=== PATIENT | female | born 1940 | race Caucasian/White ===

== ENCOUNTER 2017-08-08 13:10 | Outpatient (RCR) | payer MEDICARE ==
[~2017-08-08 13:10] MED LIST: ACE3 PO; ADV250/50 INH; ALB6.7R INH; ARFO15VI IH; ASPI-715 PO; BUDE0.256 IH; CALC600T72 PO; CHON250C2 PO; GLUC750T10 PO; LEV100 PO; MON10 PO; MULT-1335 PO; SIMV-42 PO; SULF-198 PO; TAMO20TA24 PO; TIO18R INH; VITAMIN E; [UNRECOGNIZED DRUG - CODE] PO; [UNRECOGNIZED DRUG - CODE] PO; [UNRECOGNIZED DRUG - CODE] PO
[2017-08-08 13:33] LABS: PLATELET COUNT, AUTOMATED 194 K/uL (150-450)
[2017-08-08 14:28] VITALS: BP 123/73
--- NOTE | 2017-08-09 16:49 | ONCOLOGY FOLLOW UP NOTE ---
EVENT DATE: August 08, 2017 DIAGNOSES 1. Stage I (pt1B pN0 M0) invasive ductal carcinoma, right breast. Three sentinel lymph nodes were negative for metastasis. 2. Left breast nodule. Biopsy was negative for malignancy. Was positive for fibroadenoma and benign micro calcification. 3. Chronic obstructive pulmonary disease. 4. Second degree anisocytosis. 5. Osteoporosis. CHIEF COMPLAINT The patient is here today for followup of her breast cancer. ONCOLOGY HISTORY The patient is a 77-year-old woman who was initially diagnosed with Stage I ( pt1B pN0 M0) right breast cancer, status post right breast biopsy done on January 04, 2009 followed by right simple mastectomy and right sentinel lymph node biopsy done on January 25, 2009. The final pathology report was positive for 0.9 cm invasive ductal carcinoma, grade 2/3, with negative margins. Three sentinel lymph nodes were negative for metastasis. Hormone receptor positive disease. The patient was maintained on tamoxifen since January 2009, and she was not prescribed aromatase inhibitors because of the cost. PRESENTATION Abnormal screening mammogram done on June 08, 2010, which showed a small nodular density in the left breast. DIAGNOSTIC EVALUATION Ultrasonogram of the left breast done on June 08, 2010 did reveal the presence of 7 mm irregular hypoechoic lesion at the 11 o'clock position. PROCEDURE Needle-guided biopsy of the left breast nodule done on June 16, 2010. Pathology positive for sclerotic fibroadenoma with benign micro calcification. TREATMENT The patient started treatment therapy with Arimidex on June 20, 2010, but the patient could not tolerate the treatment because of the joint pains, so the treatment was switched to tamoxifen. The patient continued tamoxifen for a total of five years and tamoxifen was stopped by the patient in May 2015 after five years of adjuvant hormonal therapy, and the patient refused to continue tamoxifen for ten years. HISTORY OF PRESENT ILLNESS The patient is here today for followup of her right breast cancer. She is complaining of shortness of breath all the time, she is on home oxygen, but other than that she does not have any other complaints. PAST MEDICAL HISTORY 1. Right breast cancer diagnosed in December 2008. 2. Hypercholesterolemia. 3. Chronic obstructive pulmonary disease. 4. Hypothyroidism. PAST SURGICAL HISTORY 1. Right hip replacement in 2005. 2. Right simple mastectomy and sentinel lymph node biopsy January 2009. 3. Broken arms, two times before. SOCIAL HISTORY The patient is . She has three sons. 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 She has about three drinks per month. She quit smoking in 2004. Before that, she smoked two packs a day for twenty-five years. Denies any abuse of drugs. FAMILY HISTORY Paternal aunt had breast cancer at the age of 68. Maternal aunt had pancreatic cancer in her 70's. CURRENT MEDICATIONS 1. Budesonide 0.5 mg/2 mL 2. Brovana 15 mcg/2 mL 3. Spiriva 18 mcg 4. Tamoxifen 20 mg 5. Levothyroxine 125 mcg 6. Singulair 10 mg 7. Simvastatin 40 mg 8. ProAir HFA 90 mcg 9. ProAir nebulizer 10. Aspirin 81 mg 11. Vitamin B12 Women's multivitamin, calcium, vitamin D, glucosamine, chondroitin, sulfate and MSN. ALLERGIES No known drug allergies. REVIEW OF SYSTEMS CONSTITUTIONAL: No appetite or weight change. No fever, chills or sweating. No recent infection. Ears: No tinnitus or hearing problem. Nose: The patient has some nasal discharge. Throat: No sore throat or mouth ulcers. Eyes: No diplopia or visual changes. RESPIRATORY: The patient has shortness of breath. CARDIOVASCULAR: No chest pain, orthopnea, or paroxysmal nocturnal dyspnea (PND) . No edema. No palpitations. GASTROINTESTINAL: No nausea or vomiting. No diarrhea or constipation. No change in bowel movements. No heartburn or swallowing difficulties. No abdominal pain. No jaundice. No hematemesis, melena or rectal bleeding. GENITOURINARY: She has recurrent urinary tract infections, so patient maintained currently on Bactrim daily. MUSCULOSKELETAL: No pain in the muscles, joints or bones. NEUROLOGICAL: No tingling or numbness in the hands or feet. No headaches or convulsions. HEMATOLOGIC/LYMPHATIC: No bleeding or easy bruising. No weakness or fatigue. No enlarged lymph nodes. SKIN: She has some lymphedema below the right armpit after carrying a heavy object lately. PSYCHIATRIC: No anxiety or depression. PHYSICAL EXAMINATION GENERAL: Looks stable. Well-developed, well-nourished, and in no acute distress. VITAL SIGNS: Blood pressure 123/73, pulse 89 per minute, respirations 16 per minute, temperature 96.9, pulse ox. 92% on 5L oxygen. HEENT: Head: Atraumatic. No sinus tenderness to palpation. Eyes: No icterus or conjunctivitis. Mouth and throat: No oral thrush or mucositis. NECK: Supple. No cervical or supraclavicular lymphadenopathy. LUNGS: Clear to auscultation and percussion bilaterally. HEART: Regular rate and rhythm. No gallops, murmurs, clicks or rubs. ABDOMEN: Soft and lax. No tenderness. No hepatosplenomegaly. No masses. EXTREMITIES: No cyanosis, clubbing or edema. LYMPHATICS: No peripheral lymphadenopathy. NEUROLOGICAL: Conscious, alert and oriented times three. No focal motor or sensory deficits. PSYCHIATRIC: Mood and affect appear normal. SKIN: No skin rash, bruise or purpuric eruption. DIAGNOSTIC DATA Her screening mammogram done July 2017 showed scattered areas of fibroglandular density with requirement of more additional views. ASSESSMENT 1. Stage I (pt1b pN0 cM0) invasive ductal carcinoma of the right breast. [place] lymph nodes were negative for metastasis. The patient used tamoxifen between January 2009, switched to Aromasin June 20, 2010 and the patient returned back to tamoxifen because of joint pains, and discontinued her tamoxifen therapy May 2015 because she felt better without it. Patient refused any further adjuvant hormonal therapy. She is currently in complete remission. Patient would like to continue her followup with her primary care provider in [place], Dr. Mireles, and I agree with that, and if the patient will have any problem in the future I will be more than happy to see her again after that. So I am planning to refer the patient to Dr. Mireles in [place] to continue followup with yearly mammogram and CBC, chem panel and CA 27-29. 2. Osteoporosis. Continue same treatment. 3. History of fibroadenoma, left breast, status post resection. 4. Hypothyroidism on supplement. 5. Chronic obstructive pulmonary disease on home oxygen. PLAN 1. Continue followup by Dr. Mireles in [place] with yearly mammogram and CBC, chem panel and CA 27-29. 2. Patient to contact us for any new concern or complaints. SARAHI
== END 2017-09-18 13:51 | disposition home or self-care (01) ==
LOC: SPU 13:10
PROVIDERS: ATTEND Internal Medicine Hematology
DX: Z85.3 Personal history of malignant neoplasm of breast (principal); M81.0 Age-related osteoporosis without current pathological fracture; E03.9 Hypothyroidism, unspecified; J44.9 Chronic obstructive pulmonary disease, unspecified; Z99.81 Dependence on supplemental oxygen; R71.8 Other abnormality of red blood cells; R06.02 Shortness of breath; Z87.891 Personal history of nicotine dependence
CPT/HCPCS: 36415; 85025; G0463; 82040; 82247; 82310; 82374; 82435; 82565; 82947; 84075; 84132; 84155; 84295; 84450; 84460; 84520; 99212